=== PATIENT | female | born 2000 | race Caucasian/White ===

== ENCOUNTER → 2021-05-20 09:05 | Outpatient (BNVA) | payer BC, SELFPAY | PROVIDERS: Visit Provider Nurse Practitioner Women's Health | DX: Z01.419 Encounter for gynecological examination (general) (routine) without abnormal findings (principal) | CPT/HCPCS: 88175 ==

== ENCOUNTER → 2022-10-26 09:57 | Outpatient (BNVA) | payer OTHER, MEDICAID, SELFPAY | PROVIDERS: Visit Provider Family Medicine | DX: L68.0 Hirsutism (principal) | CPT/HCPCS: 80053; 80061; 84439; 84443; 85025 ==